=== PATIENT | male | born 1995 | race Hispanic/Latino ===

== ENCOUNTER 2021-12-02 03:02 | Emergency (ER) | payer OTHER ==
[2021-12-02 03:56] VITALS: BP 114/77
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
== END 2021-12-02 05:56 ==
LOC: ED 03:02
DX: F10.29 Alcohol dependence with unspecified alcohol-induced disorder (principal); V87.7XXA Person injured in collision between other specified motor vehicles (traffic), initial encounter; Y93.89 Activity, other specified; Y92.488 Other paved roadways as the place of occurrence of the external cause; Y99.8 Other external cause status; Y90.9 Presence of alcohol in blood, level not specified
CPT/HCPCS: 70450; 72125; 99283